=== PATIENT | female | born 1995 | race Two or more races ===

== ENCOUNTER 2017-09-29 19:40 | Emergency (ER) | payer OTHER ==
[2017-09-29 19:47] VITALS: TEMP 99.3
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
[2017-09-29 21:01] VITALS: BP 118/86; PULSE 114; RESP 16; O2SAT 94
== END 2017-09-29 21:00 | disposition home or self-care (01) ==
DX: S00.03XA Contusion of scalp, initial encounter (principal); Z87.891 Personal history of nicotine dependence; V48.6XXA Car passenger injured in noncollision transport accident in traffic accident, initial encounter; Y92.410 Unspecified street and highway as the place of occurrence of the external cause; Y99.8 Other external cause status

== ENCOUNTER 2017-11-03 02:14 | Emergency (ER) | payer OTHER ==
[2017-11-03 02:22] VITALS: O2SAT 97
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
[2017-11-03 04:43] VITALS: BP 130/89; PULSE 84; RESP 18; TEMP 98.6
== END 2017-11-03 04:41 | disposition home or self-care (01) ==
DX: S16.1XXA Strain of muscle, fascia and tendon at neck level, initial encounter (principal); V49.50XA Passenger injured in collision with unspecified motor vehicles in traffic accident, initial encounter; Y92.410 Unspecified street and highway as the place of occurrence of the external cause